=== PATIENT | female | born 1955 | race Caucasian/White ===

== ENCOUNTER 2017-10-26 10:56 | Emergency (ER) | payer OTHER ==
--- NOTE | 2017-10-26 11:47 | RAD ---
PA AND LATERAL CHEST: History: Cough, flu-like symptoms. FINDINGS: Comparison is made with the exam of . The heart size is normal. The aorta is tortuous. The 13 mm left upper lobe partially calcified pulmon shirley nodule is stable. Lung are well expanded without focal areas of consolidation, pneumothorax or pl eural effusions. No acute osseous abnormalities are seen. IMPRESSION: Stable exam. No radiographic evidence of acute cardiopulmonary process. POS: [facility]
[2017-10-26 12:02] LABS: #Lymphocytes 0.4 thou/uL (1.20-3.40); #Monocytes 0.6 thou/uL (0.11-0.59); #Neutrophils 3.6 thou/uL (1.40-6.50); %Basophils 0.9 % (0.0-1.0); %Eosinophils 0.5 % (0.0-10.0); %Lymphocytes 9.1 % (21.0-51.0); %Monocytes 11.8 % (0.0-10.0); %Neutrophils 77.7 % (42.0-75.0); Hemoglobin 15.6 g/dL (12.0-16.0); Mean Corpuscular HGB CONC 32.8 g/dL (32.0-36.0); Mean Corpuscular Hemoglobin 32.2 pg (27.0-31.0); Mean Corpuscular Volume 98.3 fl (81.0-99.0); Mean Platelet Volume 6.2 fL (7.4-10.4); Platelet Count 198 thou/uL (130-400); RBC Distribution Width 11.8 % (11.5-14.5); Red Blood Cell (RBC) Count 4.83 mill/uL (4.20-5.40); White Blood Cell (WBC) Count 4.7 thou/uL (4.8-10.8)
[2017-10-26 12:12] LABS: ALT (SGPT) 40 U/L (8-55); AST (SGOT) 37 U/L (5-34); Albumin 4.5 g/dL (3.5-5.0); Alkaline Phosphatase 82 U/L (40-150); Anion Gap 11 mmol/L (10-20); BUN (Urea Nitrogen) 13 mg/dL (9.8-20.1); Bilirubin, Total 0.3 mg/dL (0.2-1.2); Calc. Creatinine Clearance 0 mL/min (70-130); Calcium 9.4 mg/dL (7.8-10.44); Carbon Dioxide 30 mmol/L (22-29); Chloride 97 mmol/L (98-107); Estimated GFR-MDRD 80; Globulin 3.4 g/dL (2.4-3.5); Glucose 109 mg/dL (70-105); Potassium 4.4 mmol/L (3.5-5.1); Protein, Total 7.9 g/dL (6.0-8.3); Sodium 134 mmol/L (136-145)
[2017-10-26] MEDS ORDERED: Ketorolac Tromethamine 30 MG/ML VIAL ONE (12:34)
--- NOTE | 2017-12-04 18:58 | EKG ---
Test Reason : Blood Pressure : / mmHG Vent. Rate : 108 BPM Atrial Rate : 108 BPM P-R Int : 142 ms QRS Dur : 092 ms QT Int : 330 ms P-R-T Axes : 071 075 074 degrees QTc Int : 442 ms Sinus tachycardia Otherwise normal ECG Confirmed by YOVANI MASTERSON, KETAN Amaya ([id number]), acquisition editor DEBBIE LAGUNAS ([id number] on 12/04/2017 6:58:11 PM Referred By: Confirmed By:KETAN PINA MD
== END 2017-10-26 13:55 | disposition home or self-care (01) ==
LOC: ERS 10:56
DX: J11.1 Influenza due to unidentified influenza virus with other respiratory manifestations (principal); I10 Essential (primary) hypertension; J45.909 Unspecified asthma, uncomplicated
CPT/HCPCS: 36415; 71046; 80053; 83605; 85025; 87804; 93005; 96361; 96374; J1885

== ENCOUNTER 2018-09-19 16:15 | Outpatient (CLI) | payer OTHER ==
--- NOTE | 2018-09-19 17:48 | RAD ---
PA AND LATERAL CHEST: 09/19/18 HISTORY: Cough. COMPARISON: 10/26/17 exam. Also review is made of a 01/21/17 and 03/02/16 studies. Heart size is within normal limits. There are atherosclerotic changes of the aorta. Nodular density i n the left upper lobe is stable. There is some parenchymal scarring seen in the right upper lobe. IMPRESSION: Chronic lung change. No acute process. Stable nodular density in the left upper lobe. POS: [facility]
== END 2018-09-19 16:16 | disposition home or self-care (01) ==
LOC: BICRAD 16:15
PROVIDERS: ATTEND Internal Medicine
DX: R05 Cough (principal); R91.8 Other nonspecific abnormal finding of lung field
CPT/HCPCS: 71046

== ENCOUNTER 2018-09-29 08:24 | Outpatient (CLI) | payer OTHER | END 2018-09-29 08:25 | disposition home or self-care (01) | LOC: BICMAMMO 08:24 | PROVIDERS: ATTEND Internal Medicine | DX: Z12.31 Encounter for screening mammogram for malignant neoplasm of breast (principal) | CPT/HCPCS: 77063; 77067 ==

== ENCOUNTER 2019-05-11 12:34 | Outpatient (CLI) | payer OTHER ==
--- NOTE | 2019-05-11 13:04 | RAD ---
TWO VIEWS OF THE CHEST: COMPARISON: 01/21/2017, 09/19/2018. HISTORY: Dyspnea. FINDINGS: A single view of the chest shows a normal-size cardiomediastinal silhouette. A calcified granuloma p rojects over the left upper lobe. There is no evidence of consolidation or pleural effusion. IMPRESSION: No evidence of acute cardiopulmonary disease. POS: [facility]
== END 2019-05-11 12:35 | disposition home or self-care (01) ==
LOC: RAD 12:34
PROVIDERS: ATTEND Internal Medicine Critical Care Medicine
DX: R06.00 Dyspnea, unspecified (principal)
CPT/HCPCS: 71046

== ENCOUNTER 2019-10-02 10:13 | Outpatient (CLI) | payer OTHER ==
--- NOTE | 2019-10-02 11:17 | MMO ---
Bilateral MAMMO Bilat Screen [facility]. CLINICAL HISTORY: Patient is 64 years old and is seen for screening. The patient has no family history of breast cancer. The patient has no personal history of cancer. VIEWS: The views performed were: bilateral craniocaudal with tomosynthesis; bilateral mediolateral oblique; and bilateral mediolateral oblique with tomosynthesis. FILMS COMPARED: The present examination has been compared to prior imaging studies performed at [facility] on 06/19/2016, 08/13/2017 and 09/29/2018, and at [facility] on 07/06/2014. This study has been interpreted with the assistance of computer-aided detection. MAMMOGRAM FINDINGS: The breasts are heterogeneously dense, which could obscure a lesion on mammography. There are stable benign appearing calcifications seen in both breasts. There are no suspicious masses, suspicious calcifications, or new areas of architectural distortion. IMPRESSION: THERE IS NO MAMMOGRAPHIC EVIDENCE OF MALIGNANCY. A ROUTINE FOLLOW-UP MAMMOGRAM IN 1 YEAR IS RECOMMENDED. THE RESULTS OF THIS EXAM WERE SENT TO THE PATIENT. ACR BI-RADS Category 2 - Benign finding MAMMOGRAPHY NOTE: 1. A negative mammogram report should not delay a biopsy if a dominant of clinically suspicious mass is present. 2. Approximately 10% to 15% of breast cancers are not detected by mammography. 3. Adenosis and dense breasts may obscure an underlying neoplasm. Reported by: STEPHIE MCKEON MD Electonically Signed: [id number]
--- NOTE | 2019-10-02 11:54 | BD ---
DEXA BONE MINERAL DENSITY STUDY: HISTORY: Osteoporosis screening. COMPARISON: Exam from 2012. FINDINGS: Lumbar Spine: BMD (g/cm2) L1 0.857 T-Score: -1.2 0.2 L2 0.773 T-Score: -2.3 -0.8 L3 0.860 T-Score: -2.0 -0.4 L4 0.982 T-Score: -0.7 0.9 L1-L4 0.878 T-Score: -1.5 0.0 Change from the comparison examination is +1%. Femoral Neck: 0.665 T-Score: -1.7 -0.3 Total Femur: 0.938 T-Score: 0.0 1.0 Change from the comparison is +2.4%. WHO classification, osteopenia. 10-year fracture risk: Major osteoporotic fracture is 8.2% and hip fracture is 0.8%. Impression: Osteopenia with fracture risk as above. POS: [facility]
== END 2019-10-02 10:14 | disposition home or self-care (01) ==
LOC: BICMAMMO 10:13
PROVIDERS: ATTEND Internal Medicine
DX: Z12.31 Encounter for screening mammogram for malignant neoplasm of breast (principal); Z78.0 Asymptomatic menopausal state; M85.89 Other specified disorders of bone density and structure, multiple sites
CPT/HCPCS: 77063; 77067; 77080